=== PATIENT | male | born 2005 | race Caucasian/White ===

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

== ENCOUNTER 2023-02-16 14:30 | Outpatient (RCR) | payer BC, SELFPAY | END 2023-02-16 14:35 | disposition home or self-care (01) | LOC: PT 14:30 | PROVIDERS: Visit Provider Family Medicine Sports Medicine | DX: M25.561 Pain in right knee (principal); M22.41 Chondromalacia patellae, right knee | CPT/HCPCS: 97010; 97014; 97035; 97110; 97140; 97163; 97164; 97530; G0283 ==

== ENCOUNTER 2023-02-18 11:51 | Emergency (ER) | payer BC, SELFPAY ==
[2023-02-18 11:53] VITALS: BP 127/87; PULSE 65; RESP 17; TEMP 36.8; O2SAT 99; BMI 18.6
[2023-02-18 12:30] VITALS: BP 126/89; PULSE 61; O2SAT 99
--- NOTE | 2023-02-18 12:32 | HMH.EDGENADL ---
Discharge Plan Disposition Patient Disposition: Home, Self-Care Prescriptions Prescriptions: No Action No Known Home Medications Referrals Follow up/Referrals: Provider,MD Kavin [Primary Care Provider] - See instructions Activity Restrictions/Add. Instructions Additional Instructions/Restrictions: Return with difficulty breathing or swallowing. Take Tylenol and ibuprofen as needed for your symptoms this should be self-limiting. Follow-up with your primary care doctor if you are not improving within 1 week. Clinical Impressions Clinical Impression: Pharyngitis Discharge ED Provider: Lucio Ling General Adult HPI General Chief complaint: PAIN Stated complaint: feels like something stuck in throat Time Seen by Provider: 02/18/23 12:19 Mode of Arrival: Family Vehicle Source of Information: Patient Limitations: No Limitations Description of Symptoms (Recalled from ER Triage Doc. by RN): Pt c/o pain with swallowing and feels like something is stuck . States he woke up feeling like this on or Mon this week. Reports he had a cough and congestion earlier and mucinex helped. States he is able to eat and drink, although there is pain with the swallowing. Denies fever, chills, or SOA. States he began to have nause and vomiting yesterday. Denies any trauma or injury. History of Present Illness HPI narrative: 17-year-old male here with some throat discomfort. States he has a foreign body sensation in his throat and this has been going on for the last several days. Did not eat anything that was hard the preceding night and did not eat anything with bones etc. States he woke up like this and has had some discomfort in his throat that he feels like is making it difficult to swallow with associated pain. No drooling no swelling sensation. No fevers or chills. Is able to eat and drink without difficulty states it is uncomfortable to swallow. No other symptoms. Related Data Home Medications Medication Instructions Recorded Confirmed No Known Home Medications 02/18/23 02/18/23 Allergies Allergy/AdvReac Type Severity Reaction Status Date / Time No Known Allergies Allergy Verified 05/05/22 10:46 [facility] Disclaimer: The information contained in this section may have been updated after the patient was seen, as this information can be updated by other users. Medical History (Updated 02/18/23 @ 12:34 by Lucio Ling MD) Asthma Social History (Updated 05/26/22 @ 08:44 by July Nur RN) Smoking Status: Current every day smoker alcohol intake: never current occupational status: student Travel in the last 8 weeks: None ROS Obtained: Yes All systems reviewed & no additional complaints except as documented Physical Exam General General appearance: alert ENT ENT exam: Present normal exam, normal oropharynx, mucous membranes moist, mucous membranes dry and other (No stridor no significant soft tissue swelling in the posterior oropharynx or at the base of the mouth or tongue no significant inflammation or erythema in the posterior oropharynx as well patient breathing comfortably) Respiratory Respiratory exam: Present normal lung sounds bilaterally Cardiovascular Cardiovascular exam: Present regular rate; Absent tachycardia Neurological Exam Neurological exam: Present alert and oriented X3 Medical Decision Making Joni Inquiry Pt receiving controlled substance: No Vital Signs: 02/18/23 11:53 02/18/23 12:30 Temperature 98.2 F Temperature Source Oral Pulse Rate 61 Pulse Rate [Right] 65 Respiratory Rate 17 Blood Pressure 126/89 Blood Pressure [Right Arm] 127/87 Blood Pressure Mean 97 Blood Pressure Mean [Right Arm] 100 Blood Pressure Source [Right Arm] Automatic Cuff 02 Sat by Pulse Oximetry 99 99 Oxygen Delivery Method Room Air Room Air Lab Data Lab results reviewed: Yes I reviewed the patient's lab results. Lab Results 02/18/23 12:39
[2023-02-18 12:52] LABS: Strep Scrn Group A (Rapid) Negative (Negative)
[2023-02-18 12:56] VITALS: BP 126/88; PULSE 78; RESP 17; TEMP 36.8; O2SAT 99
== END 2023-02-18 13:01 | disposition home or self-care (01) ==
PROVIDERS: Emergency Provider Student in an Organized Health Care Education/Training Program
DX: J02.9 Acute pharyngitis, unspecified (principal); R13.10 Dysphagia, unspecified; J45.909 Unspecified asthma, uncomplicated; F17.200 Nicotine dependence, unspecified, uncomplicated
CPT/HCPCS: 87430; 99283

== ENCOUNTER 2024-07-13 20:37 | Emergency (ER) | payer MEDICAID, SELFPAY ==
[2024-07-13 20:39] VITALS: BP 141/95; PULSE 64; RESP 15; TEMP 36.7; O2SAT 97; BMI 18.1
--- NOTE | 2024-07-13 20:57 | HMH.EDGENADL ---
Discharge Plan Disposition Patient Disposition: Home, Self-Care Condition: Good Prescriptions Prescriptions: No Action No Known Home Medications Referrals Follow up/Referrals: Provider,Referral, MD [Primary Care Provider] - See instructions Activity Restrictions/Add. Instructions Additional Instructions/Restrictions: Your COVID/flu was negative. You may have a different viral upper respiratory infection. Continue to treat your symptoms with Tylenol and ibuprofen. These medications can be alternated every 3 hours or taken together every 6 hours. Vicks VapoRub on the chest at night may help decrease coughing. Please follow up with your primary care provider in 2-3 days. Please return to ED if your symptoms worsen, change in location, change in severity, new symptoms develop or if you become concerned for your health. Clinical Impressions Clinical Impression: URI (upper respiratory infection) Qualifiers: URI type: unspecified URI Qualified Code(s): J06.9 - Acute upper respiratory infection, unspecified Stand Alone Forms Stand Alone Forms: Work/School Release Instructions Patient Instructions: Common Cold Print Language Print Language: Luxembourgish Discharge ED Provider: Sophie Mix General Adult HPI General Chief complaint: Upper Respiratory Infection Stated complaint: Chest congestion,cough,WILKS Time Seen by Provider: 07/13/24 20:49 History of Present Illness HPI narrative: Patient is a 19-year-old male presenting with cough and congestion. Patient states he was working yesterday and began having chest tightness and developed a dry cough. He also complains of nasal congestion. He denies fevers, chills, neck pain, sore throat, nausea, vomiting, bowel or bladder dysfunction. Patient states he stopped vaping 4 days ago. 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 Patient has no known exposures. Patient has history of childhood asthma but no longer requires inhalers or other medications. Related Data Home Medications ?Medication ?Instructions ?Recorded ?Confirmed No Known Home Medications 02/18/23 02/18/23 Allergies Allergy/AdvReac Type Severity Reaction Status Date / Time No Known Allergies Allergy Verified 05/05/22 10:46 [facility] Disclaimer: The information contained in this section may have been updated after the patient was seen, as this information can be updated by other users. Medical History , RN STAFF) Asthma Social History , RN STAFF) Smoking Status: Former smoker alcohol intake: never current occupational status: student Travel in the last 8 weeks: None Have you lived/traveled outside [place] in past 30 days?: No Contact w/someone who lives/traveled outside [place] past 30 days?: No Exposure to someone with infectious disease in past 14 days?: No Do you have a fever (greater than 100.4 F or 38 C)?: No Have you tested positive for COVID-19: No Exposed to someone with COVID-19 in past 14 days?: No Do you have a sore throat?: Yes Do you have a cough?: Yes Do you have any weakness?: No Do you have any diarrhea?: No Are you experiencing any unusual bleeding?: No Do you have any muscle aches/pain?: No Do you have any abdominal pain?: No Are you experiencing loss of taste or smell?: No Other Medical History Have you received the Pneumonia Vaccine: No ROS Obtained: Yes All systems reviewed & no additional complaints except as documented Physical Exam General General appearance: alert and in no apparent distress Head Head exam: atraumatic Eye Eye exam: Present PERRL and EOMI ENT ENT exam: Present normal exam Neck Neck exam: Present full ROM Respiratory Respiratory exam: Present normal lung sounds bilaterally; Absent respiratory distress, wheezes or stridor Cardiovascular Cardiovascular exam: Present regular rate and normal rhythm Abdominal Exam Abdominal exam: Absent distention Neurological Exam Neurological exam: Present alert and oriented X3 Medical Decision Making Medical Records Medical records reviewed: Yes I reviewed the patient's medical records. Screening: Per USPSTF and CDC recommendations, given the prevalence of disease in our region, it is our hospital?s policy to screen for HIV and viral Hepatitis for all patients aged 18 and over and those with ongoing risk factors. Joni Inquiry Pt receiving controlled substance: No Joni was queried for this patient: No Vital Signs: 07/13/24 20:39 Temperature 98.0 F Temperature Source Oral Pulse Rate [Right] 64 Respiratory Rate 15 Blood Pressure [Right Arm] 141/95 H Blood Pressure Mean [Right Arm] 110 Blood Pressure Position [Right Arm] Sitting 02 Sat by Pulse Oximetry 97 Oxygen Delivery Method Room Air Lab Data Lab results reviewed: Yes I reviewed the patient's lab results. Lab Results 07/13/24 21:04: SARS-CoV-2 (PCR) Not detected, Influenza A Untype (PCR) Not detected, Influenza Type B (PCR) Not detected Orders (Tests/Meds): ED MEDICATIONS Discontinued Medications Generic Name Dose Route Start Last Admin Trade Name Prieto PRN Reason Stop Dose Admin Acetaminophen 1,000 mg 07/13/24 20:56 07/13/24 21:08 Acetaminophen 500mg Tab PO 07/13/24 20:57 1,000 mg ONCE ONE Administration Ibuprofen 800 mg 07/13/24 20:56 07/13/24 21:08 Ibuprofen 800 Mg Tablet PO 07/13/24 20:57 800 mg ONCE ONE Administration ORDERS Category Date Time Status Rapid PCR Covid and Flu A/B Stat Lab 07/13/24 21:04 Completed Medical Decision Narrative: In summary, this is a 19-year-old male presenting with cough and congestion. Differential diagnosis includes was not limited to, COVID, flu, viral URI, asthma exacerbation, pleuritic chest pain, pneumonia, among others. Based on patient's history and presentation, URI is most likely cause of his symptoms. Patient had a single dose of Tylenol earlier this evening. We discussed patient's exposures and given that he presented within the 48-hour window of symptom initiation, patient would be eligible for antivirals. As such, patient agreed to respiratory swab. Patient treated with Tylenol and ibuprofen. Patient's respiratory swab negative for COVID and influenza. Patient otherwise stable and at this time based on physical exam and history, no imaging or additional labs necessary. Patient given symptomatic treatment recommendations, return precautions, follow-up recommendations. Patient supplied a work note for tonight and return on Monday. Patient in agreement with this plan. Patient discharged in stable condition. Sophie Mix MD PGY-3, Emergency Medicine Critical Care Critical Care Time Critical Care Time: No
[2024-07-13] MEDS: ACETAMINOPHEN 500MG TAB 1000 MG PO (21:08)
[2024-07-13] MEDS: IBUPROFEN 800 MG TABLET PO (21:08)
[2024-07-13 21:10] LABS: Coronavirus 19, PCR Not Detected (NotDetected); Influenza A, PCR Not Detected (NotDetected); Influenza B, PCR Not Detected (NotDetected)
[2024-07-13 22:15] VITALS: BP 114/75; PULSE 60; RESP 18; TEMP 36.8; O2SAT 98
== END 2024-07-13 22:17 | disposition home or self-care (01) ==
PROVIDERS: Emergency Provider Student in an Organized Health Care Education/Training Program
DX: J06.9 Acute upper respiratory infection, unspecified (principal); R05.9 Cough, unspecified; R09.81 Nasal congestion; R07.89 Other chest pain
CPT/HCPCS: 87636; 99283

== ENCOUNTER 2024-10-23 18:56 | Emergency (ER) | payer MEDICAID, SELFPAY ==
--- NOTE | 2024-10-23 19:04 | XR_ITS ---
PROCEDURE INFORMATION: Exam: XR Right Shoulder Exam date and time: 10/23/2024 7:04 PM Age: 19 years old Clinical indication: Pain; Shoulder; Right; Additional info: R shoulder pain TECHNIQUE: Imaging protocol: Radiologic exam of the right shoulder. Views: 2 or more views. COMPARISON: CR XR CHEST 2V 05/10/2022 7:27 AM FINDINGS: Bones/joints: Normal. Soft tissues: Normal. IMPRESSION: No acute findings.
--- NOTE | 2024-10-23 19:06 | ED_ITS ---
Discharge Plan Disposition Patient Disposition: Home, Self-Care Prescriptions Prescriptions: No Action No Known Home Medications Referrals Follow up/Referrals: Provider,Referral, [Primary Care Provider] - See instructions Activity Restrictions/Add. Instructions Additional Instructions/Restrictions: Take Tylenol 1000 mg every 6 hours (no more than 4 g in a 24-hour period) and ibuprofen 400 mg every 6 hours for pain. Ice shoulder as needed. Range shoulder as tolerated. Follow-up with primary care doctor. Please return to the ER with any new, concerning, or worsening symptoms. You may benefit from physical therapy in the future if your symptoms persist. Clinical Impressions Clinical Impression: Acute pain of right shoulder Print Language Print Language: Thai Discharge ED Provider: Kd Mason General Adult HPI General Chief complaint: Extremity Injury, Upper Stated complaint: right shoulder pain Time Seen by Provider: 10/23/24 18:58 Mode of Arrival: Ambulatory Source of Information: Patient Limitations: No Limitations History of Present Illness HPI narrative: This is a 19-year-old male who presents with atraumatic right shoulder pain. 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 After he got home last night, he had worsening right shoulder pain. Believes that he was having some swelling over his trapezius muscle. Denies any injury. No other complaints. Related Data Home Medications ?Medication ?Instructions ?Recorded ?Confirmed No Known Home Medications 02/18/23 02/18/23 Allergies Allergy/AdvReac Type Severity Reaction Status Date / Time No Known Allergies Allergy Verified 05/05/22 10:46 [facility] Disclaimer: The information contained in this section may have been updated after the patient was seen, as this information can be updated by other users. Medical History , SALES ANALYTICS MANAGER) Asthma Social History , SALES ANALYTICS MANAGER) Smoking Status: Never smoker alcohol intake: never current occupational status: student Travel in the last 8 weeks?: None Have you lived/traveled outside US in past 30 days?: No Contact w/someone who lives/traveled outside US past 30 days?: No Exposure to someone with infectious disease in past 14 days?: No Do you have a fever (greater than 100.4 F or 38 C)?: No Have you tested positive for COVID-19?: No Exposed to someone with COVID-19 in past 14 days?: No Do you have a sore throat?: No Do you have a cough?: No Do you have any weakness?: No Do you have any diarrhea?: No Are you experiencing any unusual bleeding?: No Do you have any muscle aches/pain?: No Do you have any abdominal pain?: No Are you experiencing loss of taste or smell?: No Other Medical History Have you received the Pneumonia Vaccine: No ROS Obtained: Yes All systems reviewed & no additional complaints except as documented Physical Exam General General appearance: alert and in no apparent distress Head Head exam: atraumatic Eye Eye exam: Present normal appearance, PERRL and EOMI Neck Neck exam: Present normal inspection and full ROM Chest Chest inspection: Present symmetric chest wall rise Respiratory Respiratory exam: Present normal lung sounds bilaterally; Absent respiratory distress Cardiovascular Cardiovascular exam: Present regular rate and normal rhythm Abdominal Exam Abdominal exam: Present soft; Absent distention Extremities Exam Extremities exam: Present other (Right shoulder: No deformity or tenderness. Neurovascularly intact distally. Passive and active range of motion fully intact. Positive empty can test.) Neurological Exam Neurological exam: Present alert and oriented X3 Psychiatric Psychiatric exam: Present normal affect and normal mood Skin Skin exam: Present warm and dry Medical Decision Making Medical Records Medical records reviewed: Yes I reviewed the patient's medical records. Screening: Per USPSTF and CDC recommendations, given the prevalence of disease in our region, it is our hospital?s policy to screen for HIV and viral Hepatitis for all patients aged 18 and over and those with ongoing risk factors. Joni Inquiry Pt receiving controlled substance: No Vital Signs: 10/23/24 19:09 Temperature 97.7 F Temperature Source Oral Pulse Rate [Left Radial] 61 Respiratory Rate 18 Blood Pressure [Left Arm] 124/86 Blood Pressure Mean [Left Arm] 98 Blood Pressure Source [Left Arm] Automatic Cuff Blood Pressure Position [Left Arm] Sitting 02 Sat by Pulse Oximetry 99 Oxygen Delivery Method Room Air Orders (Tests/Meds): ED MEDICATIONS Discontinued Medications Generic Name Dose Route Start Last Admin Trade Name Freq PRN Reason Stop Dose Admin Acetaminophen 1,000 mg 10/23/24 19:05 10/23/24 19:11 Acetaminophen 500mg Tab PO 10/23/24 19:06 1,000 mg ONCE ONE Administration Ibuprofen 400 mg 10/23/24 19:05 10/23/24 19:12 Ibuprofen 400 Mg Tablet PO 10/23/24 19:06 400 mg ONCE ONE Administration ORDERS Category Date Time Status Shoulder XR right miminum 2 views [XR shoulder RT min Exams 10/23/24 19:04 Taken 2V] Stat Medical Decision Narrative: This is a 19-year-old male presenting with atraumatic right shoulder pain. On arrival, afebrile, he medically stable, nontoxic-appearing. Differential diagnose includes but is not limited to osteoarthritis, overuse, rotator cuff injury, dislocation. Obtained x-ray imaging which was independently interpreted by me revealing of no acute osseous pathology. Had a positive empty can test on physical exam. Believe this is most likely rotator cuff injury from overuse. Counseled on therapy at home with Tylenol, ibuprofen, icing as needed, and follow-up with PCP. He may benefit from physical therapy in the future if symptoms persist. Critical Care Critical Care Time Critical Care Time: No
[2024-10-23 19:09] VITALS: BP 124/86; PULSE 61; RESP 18; TEMP 36.5; O2SAT 99; BMI 18.1
[2024-10-23] MEDS: ACETAMINOPHEN 500MG TAB 1000 MG PO (19:11)
[2024-10-23] MEDS: IBUPROFEN 400 MG TABLET PO (19:12)
[2024-10-23 19:39] VITALS: BP 124/86; PULSE 63; RESP 18; TEMP 36.5; O2SAT 98
== END 2024-10-23 19:40 | disposition home or self-care (01) ==
PROVIDERS: Emergency Provider Student in an Organized Health Care Education/Training Program
DX: M25.511 Pain in right shoulder (principal); X50.3XXA Overexertion from repetitive movements, initial encounter
CPT/HCPCS: 73030; 99283

== ENCOUNTER 2024-11-28 13:50 | Emergency (ER) | payer MEDICAID, SELFPAY ==
[2024-11-28 14:00] VITALS: BP 123/81; PULSE 86; RESP 18; TEMP 37.1; O2SAT 100; BMI 20.2
[2024-11-28] MEDS: MAGIC MOUTHWASH 300ML BOTTLE 15 ML PO (14:34)
[2024-11-28 14:38] VITALS: BP 123/81; PULSE 86; RESP 18; TEMP 37.1; O2SAT 100
--- NOTE | 2024-11-29 07:06 | HMH.EDGENADL ---
Discharge Plan Disposition Patient Disposition: Home, Self-Care Prescriptions Prescriptions: New fluocinonide 0.05 % gel 1 applic topical BID PRN (Reason: oral lesion) Qty: 15 0RF Referrals Follow up/Referrals: Provider,Referral, [Primary Care Provider, Medical] - See instructions Activity Restrictions/Add. Instructions Additional Instructions/Restrictions: You were evaluated in the emergency department today. Please swish and spit oral solution Magic mouthwash 15 mL up to 4 times daily as needed for oral pain. Please apply the topical steroid twice daily as needed for pain/lesion. Follow-up close with your primary care provider for reassessment. Return to the emergency department for new or worsening symptoms. Clinical Impressions Clinical Impression: Aphthous stomatitis Stand Alone Forms Stand Alone Forms: Work/School Release Instructions Patient Instructions: Canker Sores (Alternative Therapy), DI for Aphthous Ulcers (Canker Sores) Print Language Print Language: Belarusian Discharge ED Provider: Lorraine An General Adult HPI General Chief complaint: PAIN Stated complaint: sore in mouth, diff. eating Time Seen by Provider: 11/28/24 14:17 Mode of Arrival: Ambulatory Source of Information: Patient Description of Symptoms (Recalled from ER Triage Doc. by RN): PT presents for evaluation of sore inside of mouth on lower lip for 4 days. PT stated he has tried salt water gargles and has had no improvements. 7/10 pain rating. History of Present Illness HPI narrative: This patient is a 19-year-old male who denies significant past medical history presenting to the emergency department for evaluation with concern for sores on the inside of his lower lip that is been there for about 4 days after eating cheese its. He states that he think he cut his lip out eating cheese its, but is not getting better. He tried salt water rinses without any improvement. No other concerns or complaints noted. Related Data Previous Rx's ?Medication ?Instructions ?Recorded fluocinonide 0.05 % topical gel 1 applic topical BID PRN oral 11/28/24 lesion #15 grams Allergies Allergy/AdvReac Type Severity Reaction Status Date / Time No Known Allergies Allergy Verified 05/05/22 10:46 [facility] Disclaimer: The information contained in this section may have been updated after the patient was seen, as this information can be updated by other users. Medical History Asthma Social History Smoking Status: Never smoker alcohol intake: never current occupational status: student Travel in the last 8 weeks?: None Have you lived/traveled outside US in past 30 days?: No Contact w/someone who lives/traveled outside US past 30 days?: No Exposure to someone with infectious disease in past 14 days?: No Do you have a fever (greater than 100.4 F or 38 C)?: No Have you tested positive for COVID-19?: No Exposed to someone with COVID-19 in past 14 days?: No Do you have a sore throat?: No Do you have a cough?: No Do you have any weakness?: No Do you have any diarrhea?: No Are you experiencing any unusual bleeding?: No Do you have any muscle aches/pain?: No Do you have any abdominal pain?: No Are you experiencing loss of taste or smell?: No Other Medical History Have you received the Pneumonia Vaccine: No ROS Obtained: Yes All systems reviewed & no additional complaints except as documented Physical Exam General General appearance: alert and in no apparent distress Head Head exam: atraumatic and normocephalic Eye Eye exam: Present normal appearance, PERRL and EOMI ENT ENT exam: Present mucous membranes moist and normal external ear exam Expanded ENT Exam Open Mouth Image:  1. Small aphthous ulcer to the inside of the lower lip Neck Neck exam: Present normal inspection, full ROM and trachea midline; Absent tenderness Chest Chest inspection: Present normal inspection and symmetric chest wall rise; Absent tenderness Respiratory Respiratory exam: Present normal lung sounds bilaterally; Absent respiratory distress, wheezes, stridor or accessory muscle use Cardiovascular Cardiovascular exam: Present regular rate and normal rhythm Abdominal Exam Abdominal exam: Present soft; Absent distention, tenderness or guarding Extremities Exam Extremities exam: Present normal inspection, full ROM and normal capillary refill; Absent tenderness or edema Back Exam Back exam: Present normal inspection and full ROM; Absent tenderness Neurological Exam Neurological exam: Present alert, oriented X3, CN II-XII intact and normal gait; Absent motor sensory deficit Psychiatric Psychiatric exam: Present normal affect and normal mood Skin Skin exam: Present warm and dry Medical Decision Making Medical Records Medical records reviewed: Yes I reviewed the patient's medical records. Screening: Per USPSTF and CDC recommendations, given the prevalence of disease in our region, it is our hospital?s policy to screen for HIV and viral Hepatitis for all patients aged 18 and over and those with ongoing risk factors. Joni Inquiry Pt receiving controlled substance: No Vital Signs: 11/28/24 14:00 11/28/24 14:38 Temperature 98.7 F 98.7 F Temperature Source Oral Oral Pulse Rate 86 Pulse Rate [Right] 86 Respiratory Rate 18 18 Blood Pressure 123/81 Blood Pressure [Right Arm] 123/81 Blood Pressure Mean [Right Arm] 95 Blood Pressure Source Automatic Cuff Blood Pressure Position Sitting 02 Sat by Pulse Oximetry 100 Oxygen Delivery Method Room Air Room Air Lab Data Lab results reviewed: Yes I reviewed the patient's lab results. Orders (Tests/Meds): ED MEDICATIONS Discontinued Medications Generic Name Dose Route Start Last Admin Trade Name Freq PRN Reason Stop Dose Admin Tetracycl/Hydrocort/Nystatin/Diphen 15 ml 11/28/24 14:28 11/28/24 14:34 Magic Mouthwash 300ml Bottle PO 11/28/24 14:29 15 ml ONCE ONE Administration Medical Decision Narrative: In summary, this patient is a 19-year-old male presenting to the Emergency Department for evaluation of wound to the inside of the lower lip. Differential diagnoses considered include but are not limited to aphthous ulcer, herpetic stomatitis, abrasion, laceration. Ruling out the most morbid conditions drove assessment. On exam, patient has an aphthous ulcer to the inside lower lip without any other concerns noted on clinical exam. Pain was treated with Magic mouthwash, and he was given prescription for topical oral steroid for improvement. He was given strict return precautions and was discharged after all questions were answered with instructions for close outpatient follow-up. Critical Care Critical Care Time Critical Care Time: No
== END 2024-11-28 14:40 | disposition home or self-care (01) ==
PROVIDERS: Emergency Provider Emergency Medicine
DX: K12.0 Recurrent oral aphthae (principal)
CPT/HCPCS: 99283

== ENCOUNTER 2025-03-17 10:37 | Emergency (ER) | payer MEDICAID, SELFPAY ==
[2025-03-17 10:48] VITALS: BP 123/78; PULSE 68; RESP 18; TEMP 36.8; O2SAT 100; BMI 19.1
--- OUTSIDE RECORDS SUMMARY | 2025-03-17 10:54 | XMS_ITS | Clinical Summary ---
Author Organization [facility] Address [address] [place] [address] Care Team Providers Care Clinical Systems Analyst Name Role Phone Dodie Brooks MD Primary Care Provider [phone] Allergies No known active allergies Medications albuterol 108 (90 Base) MCG/ACT inhalerIndicatio ns:Cough in adult Inhale 2 puffs every 6 (six) hours if needed for wheezing. 18 g 1 2 Active naproxen (Naprosyn) 500 MG tabletIndication s:Left medial knee pain TAKE 1 TABLET BY MOUTH TWICE A DAY 60 tablet 2 Active triamcinolone (Kenalog) 0.1 % creamIndications :Eczema, unspecified type Apply topically 2 (two) times a day if needed (pain and swelling). 80 g 2 3 Active Active Problems No known active problems Immunizations Immunization Administration Dates Next Due DTaP 04/04/2007, 5,2003,09/11,2003 HPV 9-Valent 07/31/2018,04/16/2018,03/16/2017 Hep A, ped/adol, 2 dose 12/24/2018,12/11/2017 Hep B, Unspecified 2003,2003, 003 HiB, unspecified 07/14/2004, 4,2003,07/14 IPV 04/04/2007, 4,2003,07/14 Influenza, injectable, quadr ivalent, preservative free 03/27/2020,04/16/2018,03/16/2017 MMR 04/04/2007,07/14/2004 Meningococcal B, Omv 03/27/2020,02/12/2020 Meningococcal MCV4O 02/12/2020 Meningococcal MCV4P 01/27/2014 Tdap 01/27/2014 Varicella 01/25/2013,04/13/2004 Family History Medical History Relation Name Comments Cardiac disorder Other 1 Diabetes Other 2 Other cancer Other 3 Conversions - Other Other 4 Mental p roblems Relation Name Status Comments Other 1 Other 2 Other 3 Other 4 Social History Tobacco Use Types Packs/Day Years Used Date Smoking Tobacco: Never Passive Smoke Exposure: Yes Smokeless Tobacco: Current Tobacco Cessation:Ready to Q uit: Not Asked; Counseling Given: Not Answered Sex and Gender Information Value Date Recorded Sex Assigned at Male 03/22/2023 8:15 AM EDT Legal Sex Male 6:52 PM EDT Gender Identity Not on file Sexual Orientation Not on file Last Filed Vital Signs Vital Sign Reading Time Taken Comments Blood Pressure 142/83 03/22/2023 8:16 AM EDT Pulse 75 11/25/2022 12:58 PM EDT Temperature 37.1 C (98.7 F) 11/25/2022 12:58 PM EDT Respiratory Rate - - Oxygen Saturation - - Inhaled Oxygen Concentration - - Weight 59 kg (130 lb) 03/22/2023 8:16 AM EDT Height 177.8 cm (5' 10 ) 03/22/2023 8:16 AM EDT Body Mass Index 18.65 03/22/2023 8:16 AM EDT Plan of Treatment Health Maintenance Due Date Last Done Comments [facility]-Depression Screening 2003 [facility]-HIV Screening 2003 [facility]-Hepatitis C Screening 2003 [facility]-/Child/Adol SDOH Screenings 2003 [facility]-Hepatitis B Vaccines (4 of 4 - 4-dose series) 2003 2003, 2003, 2003 [facility]- SDOH Screenings 2021 [facility]-Adult SDOH Screenings 2021 [facility]-DTaP,Tdap,and Td Vaccines (7 - Td or Tdap) 01/28/2024 01/27/2014, 04/04/2007, 07/14/2004, Additional history exists [facility]-ITPGP-37 Vaccine ( season) 2025 [facility]-Influenza Vaccine (#1) 02/24/202503/27, 04/16/2018, 03/16/2017 [facility]-Zoster Vaccines (1 of 2) 2053 01/25/2013, 04/13/2004 [facility]-HIB Vaccines Completed 07/14/2004, , 2003, Additional history exists [facility]-IPV Vaccines Completed 04/04/2007, , 2003, Additional history exists [facility]-Varicella Vaccines Completed 01/25/2013, 2003 HPV Vaccines Completed 07/31/2018, 03/27, 03/16/2017 [facility]-Hepatitis A Vaccines Completed 12/24/2018, 11/24 [facility]-Pneumococcal Vaccine: Pediatrics (0 to 5 Years) and At-Risk Patients (6 to 49 Years) Aged Out No longer eligible based on patient's age to complete this topic [facility]-Rotavirus Vaccines Aged Out No lo nger eligible based on patient's age to complete this topic Care Teams Clinical Systems Analyst Relationship Specialty Start Date End Date Dodie Brooks MD [address] [facility] [address] [place] [address] PCP - General Adolescent Medicine 12/23/21
--- NOTE | 2025-03-17 10:58 | HMH.EDGENADL ---
Discharge Plan Disposition Patient Disposition: Home, Self-Care Prescriptions Prescriptions: No Action fluocinonide 0.05 % gel 1 applic topical BID PRN (Reason: oral lesion) Qty: 15 0RF Referrals Follow up/Referrals: Provider,Referral, MD [Primary Care Provider, Medical] - See instructions Activity Restrictions/Add. Instructions Additional Instructions/Restrictions: You were seen in the emergency department for cough and congestion. We believe that this is due to a viral infection. Please take Tylenol Motrin for pain and fever. Please hydrate well. If symptoms worsen, or new symptoms develop, please return to the emergency department. Clinical Impressions Clinical Impression: URI (upper respiratory infection) Qualifiers: URI type: unspecified URI Qualified Code(s): J06.9 - Acute upper respiratory infection, unspecified Stand Alone Forms Stand Alone Forms: Work/School Release Instructions Patient Instructions: Cough, DI for Cough -- Adult Print Language Print Language: Cameroonian Discharge ED Provider: Chao Angel General Adult HPI General Chief complaint: Cough Stated complaint: cough, chest congestion Time Seen by Provider: 03/17/25 10:51 Mode of Arrival: Ambulatory Source of Information: Patient Description of Symptoms (Recalled from ER Triage Doc. by RN): pt presents to the Ed with cough, congestion, runny nose, and chest pain for the past couple of days. Pt reports that the chest pain doesn't radiate anywhere and only occurs when he coughs. Denies shortness of breath. History of Present Illness HPI narrative: This patient presents to the emergency department with symptomatic fever, cough, congestion. Symptoms have been ongoing for the last 48 hours. he is currently not experiencing shortness of breath at rest or exertionally. His cough is productive in nature. He does endorse a history of asthma. In the emergency department today he is hemodynamically stable, comfortable, afebrile. Related Data Previous Rx's ?Medication ?Instructions ?Recorded fluocinonide 0.05 % topical gel 1 applic topical BID PRN oral 11/28/24 lesion #15 grams Allergies Allergy/AdvReac Type Severity Reaction Status Date / Time No Known Allergies Allergy Verified 05/05/22 10:46 [facility] Disclaimer: The information contained in this section may have been updated after the patient was seen, as this information can be updated by other users. Medical History Asthma Social History Smoking Status: Never smoker alcohol intake: never current occupational status: student Travel in the last 8 weeks?: None Have you lived/traveled outside US in past 30 days?: No Contact w/someone who lives/traveled outside US past 30 days?: No Exposure to someone with infectious disease in past 14 days?: No Do you have a fever (greater than 100.4 F or 38 C)?: No Have you tested positive for COVID-19?: No Exposed to someone with COVID-19 in past 14 days?: No Do you have a sore throat?: No Do you have a cough?: No Do you have any weakness?: No Do you have any diarrhea?: No Are you experiencing any unusual bleeding?: No Do you have any muscle aches/pain?: No Do you have any abdominal pain?: No Are you experiencing loss of taste or smell?: No Other Medical History Have you received the Pneumonia Vaccine: No ROS Obtained: Yes All systems reviewed & no additional complaints except as documented Physical Exam General General appearance: alert and in no apparent distress Head Head exam: atraumatic and normocephalic Eye Eye exam: Present normal appearance, PERRL and EOMI ENT ENT exam: Present normal exam and normal external ear exam Neck Neck exam: Present normal inspection, full ROM and trachea midline Chest Chest inspection: Present normal inspection and symmetric chest wall rise; Absent tenderness Respiratory Respiratory exam: Absent respiratory distress Cardiovascular Cardiovascular exam: Present regular rate, normal rhythm and other (appears warm and well perfused) Abdominal Exam Abdominal exam: Absent distention or tenderness exam: Absent deferred Extremities Exam Extremities exam: Present normal inspection and full ROM Neurological Exam Neurological exam: Present alert and oriented X3 Psychiatric Psychiatric exam: Present normal affect Skin Skin exam: Present warm and dry Medical Decision Making Medical Records Medical records reviewed: Yes I reviewed the patient's medical records. Screening: Per USPSTF and CDC recommendations, given the prevalence of disease in our region, it is our hospital?s policy to screen for HIV and viral Hepatitis for all patients aged 18 and over and those with ongoing risk factors. Joni Inquiry Pt receiving controlled substance: No Joni was queried for this patient: No Vital Signs: 03/17/25 10:48 03/17/25 10:48 03/17/25 12:14 Temperature 98.3 F 98.3 F 98.1 F Temperature Source Oral Oral Oral Pulse Rate 68 75 Pulse Rate [Right] 68 Respiratory Rate 18 18 14 Blood Pressure 123/78 126/85 Blood Pressure [Left Arm] 123/78 Blood Pressure Mean [Left Arm] 93 Blood Pressure Source Automatic Cuff Automatic Cuff Blood Pressure Source [Left Arm] Automatic Cuff Blood Pressure Position Supine Sitting Blood Pressure Position [Left Arm] Supine 02 Sat by Pulse Oximetry 100 100 Oxygen Delivery Method Room Air Room Air Room Air Lab Data Lab results reviewed: Yes I reviewed the patient's lab results. Lab Results 03/17/25 10:59: SARS-CoV-2 (PCR) Not detected, Influenza A Untype (PCR) Not detected, Influenza Type B (PCR) Not detected Orders (Tests/Meds): ORDERS Category Date Time Status CXR 2 view (NOT portable) [XR chest 2V] Stat Exams 03/17/25 11:00 Completed Rapid PCR Covid and Flu A/B Stat Lab 03/17/25 10:59 Completed Medical Decision Narrative: MDM In summary, this 19-year-old male presents to the emergency department today with cough, congestion. Initial evaluation the patient hemodynamically stable and comfortable. Differential diagnosis includes but is not limited to flu, COVID, RSV, pneumonia, asthma exacerbation. In the situation my physical exam and clinical history were very reassuring. The patient had only had symptoms for 24 hours making bacterial pneumonia unlikely, additionally he had clear lung sounds bilaterally making asthma exacerbation or consolidative process unlikely. I chose to perform a chest x-ray in this patient due to his history of asthma. Chest x-ray personally interpreted by me showed normal cardiopulmonary silhouette, no concerning findings. Based on my extremely reassuring physical exam, clinical history, and imaging workup I felt comfortable with discharge to home with instructions for conservative management of a viral upper respiratory tract infection. I did provide the patient with careful return precautions of which he verbalized understanding. Critical Care Critical Care Time Critical Care Time: No
--- NOTE | 2025-03-17 11:00 | XR_ITS ---
FINAL REPORT CLINICAL HISTORY: productive cough FINDINGS: PA and lateral views of the chest are obtained. There is no prior exam for comparison. The cardiac and mediastinal silhouettes are within normal limits. The lungs are clear. There is no pleural effusion, pneumothorax, or acute osseous abnormality. IMPRESSION: No radiographic evidence of acute cardiac or pulmonary disease. Reviewed, Interpreted and Dictated by Mayte Burks MD Transcribed by Alice Durán Authenticated and [facility]
[2025-03-17 11:03] LABS: Coronavirus 19, PCR Not Detected (NotDetected); Influenza A, PCR Not Detected (NotDetected); Influenza B, PCR Not Detected (NotDetected)
[2025-03-17 12:14] VITALS: BP 126/85; PULSE 75; RESP 14; TEMP 36.7; O2SAT 99
== END 2025-03-17 12:15 | disposition home or self-care (01) ==
PROVIDERS: Emergency Provider Student in an Organized Health Care Education/Training Program
DX: R09.89 Other specified symptoms and signs involving the circulatory and respiratory systems (principal); R05.9 Cough, unspecified; J06.9 Acute upper respiratory infection, unspecified
CPT/HCPCS: 71046; 87636; 99283

== ENCOUNTER 2025-05-10 10:37 | Emergency (ER) | payer MEDICAID, SELFPAY ==
--- OUTSIDE RECORDS SUMMARY | 2025-03-31 23:20 | XMS_ITS | Continuity of Care Document ---
Author Organization [facility] Phone Care Team Providers Care Pot Sander Name Role Phone NO, DEFINED P Unavailable Unavailable KALINA MAYA Admitting Unavailable NO, DEFINED P Primary Care Unavailable KALINA MAYA Primary Attending Unavailable ALLERGIES AND ADVERSE REACTIONS ALLERGIES AND ADVERSE REACTIONS Code System Allergy Substance Adverse Reaction Date Reaction (Severity) Comment Status Reported By Updated By No Known Allergies [id number] on March 29, 2025 9:06:54 PM UTC RESULTS Patient: MICHELLE MILIAN Date of : April 02 0 LABORATORY RESULTS ORDER 100: CBC AUTO W DIFF ( LOINC: 11696-0) ORDER DATE: March 29, 2025 9:09:00 PM UTC Specimen Source: EDTA Specimen Type: Blood specime n with EDTA PERFORMING LAB: [address] [id number] Result Comment: Final Result Date: March 29, 2025 10:09:00 PM UTC (TECH: RR) LOINC TEST FLAG RESULT REFERENCE RANGE UPDA STELLA BY 6690-2 Leukocytes [#/volume] in Blood by Automated count N 9.8 K/ul 4.0 K/ul - 10.5 K/ul March 29, 2025 10:09:00 PM UTC (TECH: RR) 789-8 Erythrocytes [#/volume] in Blood by Automated count N 5.3 M/mm3 4.7 M/mm3 - 6.1 M/mm3 March 29, 2025 10:09:00 PM UTC (TECH: RR) 718-7 Hemoglobin [Mass/volume] in Blood N 15.9 gm/dl 13.5 gm/dl - 18.0 gm/dl March 29, 2025 10:09:00 PM UTC (TECH: RR) 71497-0 Hematocrit [Volume Fraction] of Blood N 46.5 % 42.0 % - 52.0 % March 29, 2025 10:09:00 PM UTC (TECH: RR) 787-2 Erythrocyte mean corpuscular volume [Entitic volume] by Automated count N 87.1 fl 78 fl - 100 fl March 29, 2025 10:09:00 PM UTC (TECH: RR) 785-6 Erythrocyte mean corpuscular hemoglobin [Entitic mass] by Automated count N 29.8 pg 27 pg - 31 pg March 29, 2025 10:09:00 PM UTC (TECH: RR) 786-4 Erythrocyte mean corpuscular hemoglobin concentration [Mass/volume] by Automated count N 34.2 g/dl 32 g/dl - 36 g/dl March 29, 2025 10:09:00 PM UTC (TECH: RR) 34818-3 Erythrocyte distribution width [Ratio] N 11.7 % 11.5 % - 14.0 % March 29, 2025 10:09:00 PM UTC (TECH: RR) 777-3 Platelets [#/volume] in Blood by Automated count N 255 K/ul 150 K/ul - 450 K/ul March 29, 2025 10:09:00 PM UTC (TECH: RR) 44418-9 Platelet mean volume [Entitic volume] in Blood by Automated count H 11.0 fl 6 fl - 9.5 fl March 29, 2025 10:09:00 PM UTC (TECH: RR) 63150-7 Neutrophils/100 leukocytes in Blood N 64.1 % 43 % - 65 % March 29, 2025 10:09:00 PM UTC (TECH: RR) 736-9 Lymphocytes/100 leukocytes in Blood by Automated count N 27.7 % 20.5 % - 45.5 % March 29, 2025 10:09:00 PM UTC (TECH: RR) 5905-5 Monocytes/100 leukocytes in Blood by Automated count N 7.0 % 5.5 % - 11.7 % March 29, 2025 10:09:00 PM UTC (TECH: RR) 713-8 Eosinophils/100 leukocytes in Blood by Automated count L 0.4 % 0.9 % - 2.9 % March 29, 2025 10:09:00 PM UTC (TECH: RR) 706-2 Basophils/100 leukocytes in Blood by Automated count N 0.5 % 0.2 % - 1.0 % March 29, 2025 10:09:00 PM UTC (TECH: RR) 19361-4 Immature granulocytes/100 leukocytes in Blood by Automated count N 0.3 % 0.0 % - 0.8 % March 29, 2025 10:09:00 PM UTC (TECH: RR) 99350-0 Nucleated cells [#/volume] in Blood N 0.0 % March 29, 2025 10:09:00 PM UTC (TECH: RR) 91651-1 Neutrophils [#/volume] in Blood H 6.3 K/uL 2.2 K/uL - 4.8 K/uL March 29, 2025 10:09:00 PM UTC (TECH: RR) 731-0 Lymphocytes [#/volume] in Blood by Automated count N 2.7 CELL/MCL 1.3 CELL/MCL - 2.9 CELL/MCL March 29, 2025 10:09:00 PM UTC (TECH: RR) 742-7 Monocytes [#/volume] in Blood by Automated count N 0.7 CELL/MCL 0.3 CELL/MCL - 0.8 CELL/MCL March 29, 2025 10:09:00 PM UTC (TECH: RR) 711-2 Eosinophils [#/volume] in Blood by Automated count N 0.0 CELL/MCL 0 CELL/MCL - 0.2 CELL/MCL March 29, 2025 10:09:00 PM UTC (TECH: RR) 704-7 Basophils [#/volume] in Blood by Automated count N 0.1 CELL/MCL 0.0 CELL/MCL - 1.0 CELL/MCL March 29, 2025 10:09:00 PM UTC (TECH: RR) 07887-9 Immature granulocytes [#/volume] in Blood N 0.03 K/ul March 29, 2025 10:09:00 PM UTC (TECH: RR) 67205-8 Nucleated cells [#/volume] in Blood N 0.00 K/uL March 29, 2025 10:09:00 PM UTC (TECH: RR) 45114-4 Manual Differential panel - Blood N NO March 29, 2025 10:09:00 PM UTC (TECH: RR) ORDER 200: COMP METABOLIC PA EDUARDO (INC: 91037-4) ORDER DATE: March 29, 2025 9:09:00 PM UTC Specimen Source: PLASMA Specimen Type: Plasma specim en PERFORMING LAB: [address] [id number] Result Comment: Final Result Date: March 29, 2025 10:43:00 PM UT (TECH: App in the Air) LOINC TEST FLAG RESULT REFERENCE RANGE UPDA STELLA BY 2951-2 Sodium [Moles/volume ] in Serum or Plasma N 141 mmol/L 136 mmol/L - 145 mmol/L March 29, 2025 10:43:00 PM UTC (TECH: VendorStack1) 2823-3 Potassium [Moles/volume] in Serum or Plasma L 3.4 mmol/L 3.6 mmol/L - 5.0 mmol/L March 29, 2025 10:43:00 PM UT (TECH: App in the Air) 2075-0 Chloride [Moles/volume] in Serum or Plasma N 102 mmol/L 98 mmol/L - 107 mmol/L March 29, 2025 10:43:00 PM UT (TECH: App in the Air) 2027-9 Carbon dioxide, tota l [Moles/volume] in Serum or Plasma N 31.6 mmol/L 21.0 mmol/L - 32.0 mmol/L March 29, 2025 10:43:00 PM UT (TECH: VendorStack1) 36016-5 Anion gap in Blood N 10.8 O ct2024 10:43:00 PM UTC (TECH: VendorStack1) 2345-7 Glucose [Mass/volume ] in Serum or Plasma N 106 mg/dl 70 mg/dl - 120 mg/dl March 29, 2025 10:43:00 PM UT (TECH: VendorStack1) 6299-2 Urea nitrogen [Mass/volume] in Blood N 18 mg/dL 7 mg/dL - 18 mg/dL March 29, 2025 10:43:00 PM UT (TECH: VendorStack1) 75333-1 Creatinine [Moles/volume] in Blood N 1.0 mg/dL 0.6 mg/dL - 1.3 mg/dL March 29, 2025 10:43:00 PM UT (TECH: App in the Air) 34902-8 Glomerular filtratio n rate/1.73 sq M.predicted by Creatinine-based formula (MDRD) N 110 mlpermin 60 mlpermin March 29, 2025 10:43:00 PM [facility] (TECH: App in the Air) 58416-1 Osmolality of Serum or Plasma by calculated by sum of electrolytes N 295 mosm/kg 275 mosm/kg - 301 mosm/kg March 29, 2025 10:43:00 PM [facility] (TECH: App in the Air) 2885-2 Protein [Mass/volume ] in Serum or Plasma H 8.3 g/dl 6.4 g/dl - 8.2 g/dl March 29, 2025 10:43:00 PM [facility] (TECH: App in the Air) 1751-7 Albumin [Mass/volume ] in Serum or Plasma N 4.7 g/dl 3.4 g/dl - 5.0 g/dl March 29, 2025 10:43:00 PM [facility] (TECH: App in the Air) 2336-6 Globulin [Mass/volum e] in Serum N 3.6 March 29, 2025 10:43:00 PM [facility] (TECH: App in the Air) 1759-0 Albumin/Globulin [Ma ss Ratio] in Serum or Plasma N 1.3 0.7 - 2 March 29, 2025 10:43:00 PM [facility] (Socialtext: App in the Air) 57441-9 Calcium [Mass/volume ] in Serum or Plasma N 9.9 mg/dl 8.5 mg/dl - 10.5 mg/dl March 29, 2025 10:43:00 PM [facility] (Socialtext: App in the Air) 1975-2 Bilirubin.total [Mass/volume] in Serum or Plasma N 0.70 mg/dL 0.10 mg/dL - 1.00 mg/dL March 29, 2025 10:43:00 PM [facility] (TECH: App in the Air) 1920-8 Aspartate aminotransferase [Enzymatic activity/volume] in Serum or Plasma N 18 U/L 0 U/L - 37 U/L March 29, 2025 10:43:00 PM [facility] (TECH: App in the Air) 0812-6 Alanine aminotransferase [Enzymatic activity/volume] in Serum or Plasma N 18 U/L 0 U/L - 65 U/L March 29, 2025 10:43:00 PM [facility] (TECH: App in the Air) 6668-6 Alkaline phosphatase [Enzymatic activity/volume] in Serum or Plasma N 87 U/L 46 U/L - 116 U/L March 29, 2025 10:43:00 PM UTC (TECH: AH1) ORDER 300: MAGNESIUM (LOINC: 18734-9) ORDER DATE: March 29, 2025 9:09:00 PM UTC Specimen Source: PLASMA Specimen Type: Plasma specim en PERFORMING LAB: [address] [id number] Result Comment: Final Result Date: March 29, 2025 10:43:00 PM UTC (TECH: AH1) LOINC TEST FLAG [place] [address]-0 Magnesium [Mass/volume] in Serum or Plasma N 2.2 MG/DL 1.8 MG/DL - 2.4 MG/DL March 29, 2025 10:43:00 PM UTC (TECH: AH1) ORDER 500: TROPONIN I QUANT HIGH SENS. (LOINC: 33371-1) ORDER DATE: March 29, 2025 9:09:00 PM UTC Specimen Source: PLASMA Specimen Type: Plasma specim en PERFORMING LAB: [address] [id number] Result Comment: Final Result Date: March 29, 2025 10:43:00 PM UTC (TECH: AH1) LOINC TEST FLAG [place] [address]-5 Troponin I.cardiac [Mass/volume] in Serum or Plasma N <4 ng/L 0 ng/L - 76 ng/L March 29, 2025 10:43:00 PM UTC (TECH: AH1) LABORATORY NARRATIVE RESULTS Information is not available RADIOLOGY RESULTS ORDER 600: CHEST PORTABLE (L OINC: 18304-7) ORDER DATE: March 29, 2025 9:09:00 PM UTC PERFORMING LAB: [address] [id number] Final Result Date: March 10:42:36 PM UTC [address] [address] Name: RUKHSANA MARTINEZ Exam Date: 03/29/2025 : 2005 Age 19 years Gender: M Physician: JERRY ORTEZ Facility: [facility] Facility HSV: Outpatient Exam: CHEST PORTABLE XR CHEST 1 VIEW PORTABLE, 03/29/2025 4:52 PM CDT CLINICAL INDICATION: Male, 19 years old. Chest Pain w/o Trauma/Injury TECHNIQUE: 1 view radiograph of the chest was performed. COMPARISON: No prior exam. FINDINGS: The cardiomediastinal silhouette appears grossly normal. No abnormal focal opacities in the lungs. Evaluation of the medial left lung base and left lateral ribs is suboptimal secondary to overlying leads. No visible pleural effusion or pneumothorax. No acute bony abnormality appreciated. IMPRESSION: No acute process visualized in the chest. Electronically signed by: Zoila Murillo MD 03/29/2025 06:42 PM EDT RP Dictated By: Zoila Murillo Transcribed By: Transcribed On: 03/29/2025 6:42 PM Electronically signed by: Zoila Murillo 03/29/2025 Thank you for referring RUKHSANA MARTINEZ to [facility]. Legally authenticated by EHSAN MCLEOD 2025-03-29 18:42:36 PATHOLOGY NARRATIVE RESULTS Information is not available MICROBIOLOGY RESULTS No Micro Labs/Results Exist for Patient BLOOD ADMIN RESULTS Information is not available MEDICATIONS HOME MEDICATIONS Status RXNORM NDC Medication Dose Route Frequency Dates Comments Reported By Updated By Drug Treatment Unknown DISCHARGE MEDICATIONS Status RXNORM NDC Medication Dose Route Frequency Dates Dis pense Data Comments Physician Updated By No Discharge Medication Info rmation Available INPATIENT MEDICATIONS Status RXNORM NDC Medication Dose Route Frequency Rat e Quantity Dates Indication Dispense Data Comments Physician Updated By [facility] [phone] baby aspirin (FRANCINE) 81 MG CHEW 81.0 MG ORAL ONE TIME ONLY (SCHEDULED DOSE) Start: Octobe r 2024 10:02: 00 PM [facility] End: Octobe r 2024 10:02: 00 PM [facility] ZULMA Pak [facility] ED on March 29, 2025 10:02:00 PM [facility] SOCIAL HISTORY SOCIAL HISTORY - Smoking Status SNOMED-CT Social History Element Description Effective Dates Offered Cessation Comment Updated By [id number] Current Tobacco smoking status Current Every Day Smoker [id number] on March 29, 2025 9:06:59 PM [facility] SOCIAL HISTORY - Gender Sex: Male SOCIAL HISTORY - Status : status i nformation is not available Intention in Next Year: intention information is not available SOCIAL HISTORY - Assessments Code System Description Status Date Value of Assessment Updated By Comment Assessment Information is no t available SOCIAL HISTORY - Jackson Affiliation Jackson information is not av ailable SOCIAL HISTORY - Legal Sex Legal Sex information is not available SOCIAL HISTORY - Sexual Behavior Sexual Orientation Gender Identity SNOMED-CT Description SNO MED -CT Description Activity Level No of Partners Partner Type UpdatedBy Information is not available SOCIAL HISTORY - Occupation Occupation information is no t available VITAL SIGNS PATIENT VITAL SIGNS This section displays the mo st recent value for each vital sign as of April 01, 2025 4:20:21 AM UTC Loinc Code Vital Sign Activity Date Result Updated By 8302-2 Body height March 29, 2025 9:43:22 PM UTC 180.34 cm (71.0 in) [id number] on March 29, 2025 9:43:22 PM UTC 90401-3 Body mass index (BMI ) [Ratio] March 29, 2025 9:43:22 PM UTC 22.354 kg/m2 3140-1 Body Surface Area Derived From Formula March 29, 2025 9:43:22 PM UTC 1.9195 m2 8310-5 Body temperature March 29, 2025 9:42:00 PM UTC 98.1 [degF] 98641-3 Body weight Measured March 29, 2025 9:43:22 PM UTC 72.7 kg (160.0 lb) [id number] on March 29, 2025 9:43:22 PM UTC 8462-4 Diastolic blood pressure March 29, 2025 9:42:00 PM UTC 81.0 mm[Hg] 8867-4 Heart rate March 29, 2025 9:42:00 PM UTC 69 /min 95280-0 Oxygen saturation in Arterial blood by Pulse oximetry March 29, 2025 9:42:00 PM UTC 97.0 % 9279-1 Respiratory rate March 29, 2025 9:42:00 PM UTC 18 /min 8480-6 Systolic blood pressure March 29, 2025 9:42:00 PM UTC 126.0 mm[Hg] PEDIATRIC GROWTH CHART - VITAL SIGNS This section displays Head C ircumference Percentile, Weight for Length Percentile and BMI Percentile Loinc Code Pediatric Measure Age (Months) Result Updat ed By No Pediatric Growth Chart Pe rcentile Information Available. HEALTH CONCERNS Problems Concern Status Health Concern problem infor mation not available. Smoking Status Status Years Used Consumed packs p er day Health Concern smoking histo ry information not available. Family History Concern Status Health Concern family histor y information not available. ENCOUNTERS ENCOUNTER INFORMATION Reason for Visit CHEST PAIN/LIGHTHEAD ED Admission March 29, 2025 8:54:00 PM UTC [address] [address] Discharge March 29, 2025 11:41:00 PM UT DISCHARGED TO HOME OR SELF CARE ENCOUNTER DIAGNOSES Notes information is not jagdish ilable. Code System Diagnosis Onset Date Diagnosis information is not available. ABSTRACT DIAGNOSES Code System Diagnosis Updated By Abatement Date R07.9 ICD10 CHEST PAIN, UNSPECIFIED [id number] on April 01, 2025 4:19:40 AM UT R06.02 ICD10 SHORTNESS OF BREATH [id number] on April 01, 2025 4:19:40 AM UT R42 ICD10 DIZZINESS AND GIDDINESS [id number] on April 01, 2025 4:19:40 AM UT B34.9 ICD10 VIRAL INFECTION, UNSPECIFIED [id number] on April 01, 2025 4:19:40 AM UT Z72.0 ICD10 TOBACCO USE [id number] on 2024 4:19:40 AM UT CARE TEAM Care Pot Sander Role DEFINED NO Referring KALINA MAYA Admitting DEFINED NO Primary Care KALINA MAYA Primary Attending CARE TEAM CARE gold leaf gilder Role on Team Location Telecom Status Start Date End Bernardo e Updated By NO DEFINED PRIMARY C Referring normal March 29, 2025 9:07:19 PM UT March 29, 2025 11:41:00 PM UT [id number] on March 29, 2025 9:07:19 PM UT ZULMA GILMAN L Attending normal March 29, 2025 9:07:19 PM [facility] March 29, 2025 11:41:00 PM UT [id number] on March 29, 2025 9:07:19 PM [facility] ZULMA GILMAN L Admitting normal March 29, 2025 9:07:19 PM [facility] March 29, 2025 11:41:00 PM UT [id number] on March 29, 2025 9:07:19 PM [facility] NO DEFINED PRIMARY C PCP normal March 29, 2025 8:55:27 PM UT March 29, 2025 11:41:00 PM [facility] [id number] on March 29, 2025 9:07:19 PM [facility]
[2025-05-10 10:43] VITALS: BP 145/99; PULSE 72; RESP 16; TEMP 36.6; O2SAT 100; BMI 18.8
--- OUTSIDE RECORDS SUMMARY | 2025-05-10 10:44 | XMS_ITS | Clinical Summary ---
Author Organization [facility] Address [address] [place] [address] Care Team Providers Care Instructor Traffic Safety Name Role Phone Dodie Brooks MD Primary Care Provider [phone] Allergies No known active allergies Medications albuterol [...] [facility]-HIV Screening 2003 [facility]-Hepatitis C Screening 2003 [facility]-Infant/Child/Adol SDOH Screenings 2003 [facility]-Hepatitis B Vaccines (4 of 4 - 4-dose series) 2003 2005, 2003, 2003 [facility]- SDOH Screenings 2021 [facility]-Adult SDOH Screenings 2021 [facility]-DTaP,Tdap,and Td Vaccines (7 - Td or Tdap) 01/28/2024 01/27/2014, 04/04/2007, 07/14/2004, Additional history exists [id number] Vaccine ( season) 2025 [facility]-Influenza Vaccine (#1) [...] age to complete this topic Care Teams Instructor Traffic Safety Relationship Specialty Start Date End Date Dodie Brooks MD [address] [facility] [address] [place] [address] PCP - General Adolescent Medicine 12/23/21
--- NOTE | 2025-05-10 10:48 | ED_ITS ---
Discharge Plan Disposition Patient Disposition: Home, Self-Care Prescriptions Prescriptions: No Action fluocinonide 0.05 % gel 1 applic topical BID PRN (Reason: oral lesion) Qty: 15 0RF Referrals Follow up/Referrals: Provider,Referral, MD [Primary Care Provider, Medical] - See instructions Activity Restrictions/Add. Instructions Additional Instructions/Restrictions: You can take Tylenol and ibuprofen every 6 hours as needed over the next few days to help with your symptoms. Follow-up the results of your flu and COVID testing on the patient portal or by calling the hospital later today for the results. Continue to hydrate well by drinking plenty of fluids. If you develop any new or worsening symptoms, or if you become concerned for your help for any reason, return to the emergency department for evaluation. Clinical Impressions Clinical Impression: Flu-like symptoms Stand Alone Forms Stand Alone Forms: Work/School Release Print Language Print Language: Frisian Discharge ED Provider: Baltazar Fuentes General Adult HPI General Chief complaint: Upper Respiratory Infection Stated complaint: nausea, vomiting, coughing Time Seen by Provider: 05/10/25 10:44 Mode of Arrival: Ambulatory Source of Information: Patient Description of Symptoms (Recalled from ER Triage Doc. by RN): pt started experiencing flu like symptoms yesterday. body aches,runny nose,headache History of Present Illness HPI narrative: Scot Garcias is a healthy 20-year-old male with no significant past medical history who presents to the emergency department for complaints of flulike symptoms. Patient states that starting on Monday, he developed a runny nose and overall not feeling well. He reports a mild dry cough. He states that his symptoms have progressed. Today he had an episode of coughing and then vomited after coughing and that is when he decided to come to the emergency department. He denies any fevers. He denies any shortness of breath or chest pain. He denies any abdominal pain Related Data Previous Rx's ?Medication ?Instructions ?Recorded fluocinonide 0.05 % topical gel 1 applic topical BID P RN oral 11/28/24 lesion #15 grams Allergies Allergy/AdvReac Type Severity Reaction Status Date / Time No Known Allergies Allergy Verified 05/05/22 10:46 [facility] Disclaimer: The information contained in this section may have been updated after the patient was seen, as this information can be updated by other users. Medical History Asthma Social History Smoking Status: Never smoker alcohol intake: never current occupational status: student Travel in the last 8 weeks?: None Have you lived/traveled outside US in past 30 days?: No Contact w/someone who lives/traveled outside US past 30 days?: No Exposure to someone with infectious disease in past 14 days?: No Do you have a fever (greater than 100.4 F or 38 C)?: No Have you tested positive for COVID-19?: No Exposed to someone with COVID-19 in past 14 days?: No Do you have a sore throat?: No Do you have a cough?: No Do you have any weakness?: No Do you have any diarrhea?: No Are you experiencing any unusual bleeding?: No Do you have any muscle aches/pain?: No Do you have any abdominal pain?: No Are you experiencing loss of taste or smell?: No Other Medical History Have you received the Pneumonia Vaccine: No ROS Obtained: Yes Systems reviewed as appropriate & no additional complaints except as documented Physical Exam General General appearance: alert and in no apparent distress Head Head exam: atraumatic Eye Eye exam: Present normal appearance ENT ENT exam: Present normal external ear exam Neck Neck exam: Present full ROM Chest Chest inspection: Present symmetric chest wall rise Respiratory Respiratory exam: Present normal lung sounds bilaterally; Absent respiratory distress Cardiovascular Cardiovascular exam: Present regular rate and normal rhythm Abdominal Exam Abdominal exam: Present soft; Absent tenderness or guarding exam: Present deferred Extremities Exam Extremities exam: Present normal inspection Back Exam Back exam: Present normal inspection Neurological Exam Neurological exam: Present alert and oriented X3 Psychiatric Psychiatric exam: Present normal affect Skin Skin exam: Present warm and dry Medical Decision Making Medical Records Screening: Per USPSTF and CDC recommendations, given the prevalence of disease in our region, it is our hospital?s policy to screen for HIV and viral Hepatitis for all patients aged 18 and over and those with ongoing risk factors. Joni Inquiry Pt receiving controlled substance: No Vital Signs: 05/10/25 10:43 Temperature 97.9 F Temperature Source Oral Pulse Rate [Right] 72 Respiratory Rate 16 Blood Pressure [Right Arm] 145/99 H Blood Pressure Mean [Right Arm] 114 02 Sat by Pulse Oximetry 100 Oxygen Delivery Method Room Air Orders (Tests/Meds): ORDERS Category Date Time Status Rapid PCR Covid and Flu A/B Stat Lab 05/10/25 Received Medical Decision Narrative: Scot Garcias is a healthy 20-year-old male with no significant past medical history who presents to the emergency department for complaints of flulike symptoms. Patient states that starting on Monday, he developed a runny nose and overall not feeling well. He reports a mild dry cough. He states that his symptoms have progressed. Today he had an episode of coughing and then vomited after coughing and that is when he decided to come to the emergency department. He denies any fevers. He denies any shortness of breath or chest pain. He denies any abdominal pain. On arrival, patient is mildly hypertensive but maintaining appropriate oxygen saturation on room air. Afebrile. Heart rate within normal limits. Physical exam, as stated above, revealed an overall well- appearing male in no distress. He is breathing comfortably. Cardiopulmonary exam reveals no wheezing, rales or rhonchi. No murmurs or rubs. Abdomen is soft, nontender nondistended. I have low concern for pneumonia at this time given patient's nonproductive cough, lack of fever I do feel that he symptomatology is most likely viral in nature. Patient would like a COVID and flu test. Will obtain rapid COVID and PCR testing. Patient is outside the window for any Tamiflu or Paxlovid and does not have severe symptoms, thus I do not need to wait for results. I encouraged patient to follow-up the results on patient portal or by calling the hospital. Will provide work note. Return precautions were given. All questions were answered. He demonstrated understanding and was in agreement this plan. He was then discharged from the emergency department in stable condition Critical Care Critical Care Time Critical Care Time: No
[2025-05-10 10:49] LABS: Coronavirus 19, PCR Not Detected (NotDetected); Influenza A, PCR Not Detected (NotDetected); Influenza B, PCR Not Detected (NotDetected)
[2025-05-10 10:54] VITALS: BP 143/101; PULSE 66; RESP 16; TEMP 36.6; O2SAT 100
== END 2025-05-10 10:55 | disposition home or self-care (01) ==
PROVIDERS: Emergency Provider Student in an Organized Health Care Education/Training Program
DX: J06.9 Acute upper respiratory infection, unspecified (principal); R68.89 Other general symptoms and signs
CPT/HCPCS: 87636; 99282

== ENCOUNTER 2025-05-19 23:11 | Emergency (ER) | payer MEDICAID, SELFPAY ==
[2025-05-19 23:16] VITALS: BP 139/83; PULSE 72; RESP 16; TEMP 36.7; O2SAT 98; BMI 18.1
--- OUTSIDE RECORDS SUMMARY | 2025-05-19 23:21 | XMS_ITS | Clinical Summary ---
Author Organization [facility] Address [address] [place] [address] Care Team Providers Care Therapeutic Recreation Specialist Name Role Phone Dodie Brooks MD Primary Care Provider [phone] Allergies No known active allergies Medications albuterol [...] 01/28/2024 01/27/2014, 04/04/2007, 07/14/2004, Additional history exists [id number] Vaccine (2024- season) 2025 [facility]-Influenza Vaccine (#1) 02/24/202503/27, 04/16/2018, [...] age to complete this topic Care Teams Therapeutic Recreation Specialist Relationship Specialty Start Date End Date Dodie Brooks MD [address] [facility] [address] [place] [address] PCP - General Adolescent Medicine 12/23/21
--- NOTE | 2025-05-19 23:25 | ED_ITS ---
Discharge Plan Disposition Patient Disposition: Home, Self-Care Condition: Good Prescriptions Prescriptions: No Action fluocinonide 0.05 % gel 1 applic topical BID PRN (Reason: oral lesion) Qty: 15 0RF Referrals Follow up/Referrals: Provider,Referral, MD [Primary Care Provider, Medical] - See instructions Activity Restrictions/Add. Instructions Additional Instructions/Restrictions: Please follow-up with your primary care provider. Please return to the emergency department if you develop any new or worsening symptoms or become concerned for your health. Recommend Tylenol ibuprofen. Recommend using a wrist brace and limiting the inflaming activities. Clinical Impressions Clinical Impression: Carpal tunnel syndrome on both sides Print Language Print Language: Haitian Discharge ED Provider: Khurram Mccallum General Adult HPI General Chief complaint: PAIN Stated complaint: stiff, cramping right forearm Time Seen by Provider: 05/19/25 23:15 Mode of Arrival: Ambulatory Source of Information: Patient Description of Symptoms (Recalled from ER Triage Doc. by RN): Pt states he has had bilateral forearm pain and hand weakness for months History of Present Illness HPI narrative: 20-year-old male without significant past medical history presents for intermittent bilateral wrist and hand tingling and pain. 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 Symptoms been ongoing for months. They are intermittent but seem to be worsening. He also reports some weakness. Denies any trauma. Related Data Previous Rx's ?Medication ?Instructions ?Recorded fluocinonide 0.05 % topical gel 1 applic topical BID P RN oral 11/28/24 lesion #15 grams Allergies Allergy/AdvReac Type Severity Reaction Status Date / Time No Known Allergies Allergy Verified 05/05/22 10:46 [facility] Disclaimer: The information contained in this section may have been updated after the patient was seen, as this information can be updated by other users. Medical History Asthma Social History Smoking Status: Current every day smoker alcohol intake: never current occupational status: student Travel in the last 8 weeks?: None Have you lived/traveled outside US in past 30 days?: No Contact w/someone who lives/traveled outside US past 30 days?: No Exposure to someone with infectious disease in past 14 days?: No Do you have a fever (greater than 100.4 F or 38 C)?: No Have you tested positive for COVID-19?: No Exposed to someone with COVID-19 in past 14 days?: No Do you have a sore throat?: No Do you have a cough?: No Do you have any weakness?: No Do you have any diarrhea?: No Are you experiencing any unusual bleeding?: No Do you have any muscle aches/pain?: No Do you have any abdominal pain?: No Are you experiencing loss of taste or smell?: No Other Medical History Have you received the Pneumonia Vaccine: No ROS Obtained: Yes All systems reviewed & no additional complaints except as documented Physical Exam General General appearance: alert and in no apparent distress Head Head exam: atraumatic and normocephalic Eye Eye exam: Present normal appearance, PERRL and EOMI ENT ENT exam: Present normal oropharynx and normal external ear exam Neck Neck exam: Present normal inspection and full ROM Chest Chest inspection: Present normal inspection and symmetric chest wall rise; Absent tenderness Respiratory Respiratory exam: Present normal lung sounds bilaterally; Absent respiratory distress Cardiovascular Cardiovascular exam: Present regular rate and normal rhythm Abdominal Exam Abdominal exam: Present soft; Absent distention, tenderness or guarding Extremities Exam Extremities exam: Present normal inspection and other (Mild grade foreman strength weakness and wrist flexion weakness, normal range of motion, normal pulse exam, normal sensation); Absent edema or joint swelling Back Exam Back exam: Present normal inspection; Absent tenderness Neurological Exam Neurological exam: Present alert and oriented X3; Absent motor sensory deficit Psychiatric Psychiatric exam: Present normal affect and normal mood Skin Skin exam: Present warm, dry and normal color Lymphatic Lymphatic Findings: no adenopathy Medical Decision Making Medical Records Medical records reviewed: Yes I reviewed the patient's medical records. Screening: Per USPSTF and CDC recommendations, given the prevalence of disease in our region, it is our hospital?s policy to screen for HIV and viral Hepatitis for all patients aged 18 and over and those with ongoing risk factors. Joni Inquiry Pt receiving controlled substance: No Joni was queried for this patient: No Vital Signs: 05/19/25 23:16 05/19/25 23:27 Temperature 98.0 F 98 F Temperature Source Oral Pulse Rate 88 Pulse Rate [Right Radial] 72 Respiratory Rate 16 18 Blood Pressure 123/87 Blood Pressure [Right Arm] 139/83 Blood Pressure Mean [Right Arm] 101 Blood Pressure Source Automatic Cuff Blood Pressure Position Sitting Blood Pressure Position [Right Arm] Sitting 02 Sat by Pulse Oximetry 98 Oxygen Delivery Method Room Air Room Air Lab Data Lab results reviewed: Yes I reviewed the patient's lab results. Orders (Tests/Meds): ORDERS Category Date Time Status HIV Combo Routine Lab 05/19/25 23:20 Ordered Hepatitis C Ab Qual. W/ RFX Routine Lab 05/19/25 23:20 Ordered Medical Decision Narrative: 20-year-old male without significant past medical history presents for months of worsening wrist and hand pain and tingling with some weakness. History was obtained via interactive discussion with patient. On arrival, patient is [afebrile, hemodynamically stable, satting appropriately, alert, oriented x4, GCS 15], moving all extremities spontaneously. Full physical exam performed and significant for mild weakness with grade foreman strength and wrist flexion, otherwise normal exam. Differential includes but is not limited to carpal tunnel syndrome, demyelinating syndrome. Presentation seems most consistent with carpal tunnel syndrome. I recommended he limit exacerbating activities, fruit picker some wrist braces and follow-up with his PCP for physical therapy and further assessment. Patient was agreeable to plan and discharged in stable condition. Procedures Risk/Benefits of Procedure(s) Were Explained: Yes Critical Care Critical Care Time Critical Care Time: No
[2025-05-19 23:27] VITALS: BP 123/87; PULSE 88; RESP 18; TEMP 36.6; O2SAT 100
== END 2025-05-19 23:31 | disposition home or self-care (01) ==
PROVIDERS: Emergency Provider Emergency Medicine
DX: G56.03 Carpal tunnel syndrome, bilateral upper limbs (principal); M79.631 Pain in right forearm; M79.632 Pain in left forearm; X50.3XXA Overexertion from repetitive movements, initial encounter
CPT/HCPCS: 99282

== ENCOUNTER 2025-06-07 18:24 | Emergency (ER) | payer MEDICAID, SELFPAY ==
[2025-06-07 18:28] VITALS: BP 151/85; PULSE 78; RESP 20; TEMP 36.8; O2SAT 98; BMI 18.8
--- NOTE | 2025-06-07 18:39 | ED_ITS ---
Discharge Plan Disposition Patient Disposition: Home, Self-Care Prescriptions Prescriptions: No Action fluocinonide 0.05 % gel 1 applic topical BID PRN (Reason: oral lesion) Qty: 15 0RF Referrals Follow up/Referrals: Provider,Referral, MD [Primary Care Provider, Medical] - See instructions Activity Restrictions/Add. Instructions Additional Instructions/Restrictions: You likely have a viral infection causing your symptoms. You can follow-up the results of your swab on the patient portal or by calling the hospital later tonight or tomorrow for the results. Continue to take Tylenol, ibuprofen to help with pain. Continue to hydrate well. Follow-up with your primary care physician as needed. If you develop any new or worsening symptoms, such as difficulty breathing, difficulty swallowing, muffled voice, or if you become concerned for your help for any reason, return to the emergency department for evaluation. Clinical Impressions Clinical Impression: Acute viral pharyngitis Stand Alone Forms Stand Alone Forms: Work/School Release Print Language Print Language: Icelandic Discharge ED Provider: Baltazar Fuentes General Adult HPI General Chief complaint: Sore Throat Stated complaint: pain, behind cheng apple, feels like something stuc Time Seen by Provider: 06/07/25 18:35 Mode of Arrival: Ambulatory Source of Information: Patient and Significant Other Description of Symptoms (Recalled from ER Triage Doc. by RN): cristóbal presents to the ED for sore throat and eva feeling that something is stuck behind his gurrola apple. he denied eatinga nything and being unable to swallow it, but states its getting harder to swallow the last few days . tenisha does have tonsils still. History of Present Illness HPI narrative: Scot Garcias is a healthy 20-year-old male who presents to the emergency department for complaints of sore throat. Patient states that for the past 2 to 3 days, he has woken up with a sore and dry throat. Patient states that it is painful to swallow. He states that he is still swallowing okay. He denies any shortness of breath or difficulty breathing. He has not had any fevers. He has not taken any medication for it. He does not feel like his voice is hoarse or muffled. Related Data Previous Rx's ?Medication ?Instructions ?Recorded fluocinonide 0.05 % topical gel 1 applic topical BID P RN oral 11/28/24 lesion #15 grams Allergies Allergy/AdvReac Type Severity Reaction Status Date / Time No Known Allergies Allergy Verified 05/05/22 10:46 [facility] Disclaimer: The information contained in this section may have been updated after the patient was seen, as this information can be updated by other users. Medical History Asthma Social History Smoking Status: Never smoker alcohol intake: never current occupational status: student Travel in the last 8 weeks?: None Have you lived/traveled outside US in past 30 days?: No Contact w/someone who lives/traveled outside US past 30 days?: No Exposure to someone with infectious disease in past 14 days?: No Do you have a fever (greater than 100.4 F or 38 C)?: No Have you tested positive for COVID-19?: No Exposed to someone with COVID-19 in past 14 days?: No Do you have a sore throat?: No Do you have a cough?: No Do you have any weakness?: No Do you have any diarrhea?: No Are you experiencing any unusual bleeding?: No Do you have any muscle aches/pain?: No Do you have any abdominal pain?: No Are you experiencing loss of taste or smell?: No Other Medical History Have you received the Pneumonia Vaccine: No ROS Obtained: Yes Systems reviewed as appropriate & no additional complaints except as documented Physical Exam General General appearance: alert and in no apparent distress Head Head exam: atraumatic Eye Eye exam: Present normal appearance ENT ENT exam: Present mucous membranes moist and normal external ear exam; Absent normal oropharynx (Mild posterior oropharyngeal erythema without tonsillar swelling, exudates. Uvula is midline.) Neck Neck exam: Present full ROM; Absent lymphadenopathy Chest Chest inspection: Present symmetric chest wall rise Respiratory Respiratory exam: Absent respiratory distress Cardiovascular Cardiovascular exam: Present regular rate and normal rhythm Abdominal Exam Abdominal exam: Absent distention exam: Present deferred Extremities Exam Extremities exam: Present normal inspection Back Exam Back exam: Present normal inspection Neurological Exam Neurological exam: Present alert and oriented X3 Psychiatric Psychiatric exam: Present normal affect Skin Skin exam: Present warm and dry Medical Decision Making Medical Records Screening: Per USPSTF and CDC recommendations, given the prevalence of disease in our region, it is our hospital?s policy to screen for HIV and viral Hepatitis for all patients aged 18 and over and those with ongoing risk factors. Joni Inquiry Pt receiving controlled substance: No Vital Signs: 06/07/25 18:28 Temperature 98.2 F Temperature Source Oral Pulse Rate [Right Radial] 78 Respiratory Rate 20 Blood Pressure [Right Arm] 151/85 H Blood Pressure Mean [Right Arm] 107 Blood Pressure Source [Right Arm] Automatic Cuff Blood Pressure Position [Right Arm] Sitting 02 Sat by Pulse Oximetry 98 Oxygen Delivery Method Room Air Lab Data Lab Results 06/07/25 18:31: Group A Strep Rapid Negative Orders (Tests/Meds): ED MEDICATIONS Discontinued Medications Generic Name Dose Route Start Last Admin Trade Name Freq PRN Reason Stop Dose Admin Acetaminophen 1,000 mg 06/07/25 18:43 Acetaminophen 500mg Tab PO 06/07/25 18:44 ONCE ONE Ibuprofen 600 mg 06/07/25 18:43 Ibuprofen 600 Mg Tablet PO 06/07/25 18:44 ONCE ONE ORDERS Category Date Time Status Mini Respiratory Panel Stat Lab 06/07/25 19:00 Ordered Rapid Strep Scrn Group A [Strep Scrn Group A (Rapid)] Lab 06/07/25 18:31 Completed Stat Strep Screen Confirmation Stat Micro 06/07/25 18:31 Received Medical Decision Narrative: Scot Garcias is a healthy 20-year-old male who presents to the emergency department for complaints of sore throat. Patient states that for the past 2 to 3 days, he has woken up with a sore and dry throat. Patient states that it is painful to swallow. He states that he is still swallowing okay. He denies any shortness of breath or difficulty breathing. He has not had any fevers. He has not taken any medication for it. He does not feel like his voice is hoarse or muffled. Patient states that there have been a few people at work that have had viral respiratory infections recently. On arrival, patient is mildly hypertensive but otherwise hemodynamically stable, afebrile, breathing comfortably on room air with appropriate oxygen saturation. Physical exam, as stated above, revealed an overall well-appearing male in no distress. He is speaking in full sentences. His voice does not appear muffled. He has no tonsillar swelling or exudates and uvula is midline. He has no cervical lym phadenopathy. He has some mild posterior oropharyngeal erythema. For the patient symptomatology is likely related to viral pharyngitis. Will obtain strep swab to rule out strep pharyngitis. Low concern for peritonsillar abscess or retropharyngeal abscess or retained foreign body at this time based on physical exam. I do not feel that any CT or x-ray imaging is indicated here as it would not change ED management. Will obtain mini viral panel as well (rapid COVID and flu testing is inoperable at this time) patient strep swab is negative. I do feel the patient symptomatology is most consistent with viral pharyngitis. Recommended conservative treatment with Tylenol, ibuprofen and follow-up with his primary care doctor if symptoms do not improve. Return precautions were given. All questions were answered. He demonstrated understanding and was in agreement this plan. He was then discharged in the emergency department in stable condition.. Will administer 1000 mg of oral Tylenol and 60 mg of oral ibuprofen as well. Critical Care Critical Care Time Critical Care Time: No
--- OUTSIDE RECORDS SUMMARY | 2025-06-07 18:41 | XMS_ITS | Clinical Summary ---
Author Organization [facility] Address [address] [place] [address] Care Team Providers Care Staff Auditor Name Role Phone Dodie Brooks MD Primary Care Provider [phone] Allergies No known active allergies Medications albuterol [...] 01/28/2024 01/27/2014, 04/04/2007, 07/14/2004, Additional history exists [id number] Vaccine (2024- season) 2025 UKY-Influenza Vaccine (#1) [...] age to complete this topic Care Teams Staff Auditor Relationship Specialty Start Date End Date Dodie Brooks MD [address] [facility] [address] [place] [address] PCP - General Adolescent Medicine 12/23/21
[2025-06-07 18:51] LABS: Strep Scrn Group A (Rapid) Negative (Negative)
[2025-06-07] MEDS: IBUPROFEN 600 MG TABLET PO (19:21)
[2025-06-07] MEDS: ACETAMINOPHEN 500MG TAB 1000 MG PO (19:21)
[2025-06-07 19:28] VITALS: BP 151/85; PULSE 78; RESP 18; TEMP 36.8; O2SAT 98
== END 2025-06-07 19:28 | disposition home or self-care (01) ==
PROVIDERS: Emergency Provider Student in an Organized Health Care Education/Training Program
DX: J02.9 Acute pharyngitis, unspecified (principal); B34.9 Viral infection, unspecified
CPT/HCPCS: 87430; 99283